=== PATIENT | male | born 1955 | race African-American/Black ===

== ENCOUNTER 2022-09-03 12:08 | Emergency (ER) | payer OTHER ==
[~2022-09-03] VITALS: Ht 175.3 cm; Wt 75.0 kg
[2022-09-03] MEDS ORDERED: KETOROLAC 60MG/2ML VIAL IM STA (15:38)
[2022-09-03 16:50] LABS: CLARITY URINE CLEAR (CLEAR); COLOR URINE YELLOW (YELLOW); KETONES URINE NEGATIVE (NEGATIVE); LEUKOCYTE ESTERASE URINE NEGATIVE (NEGATIVE); NITRITE URINE NEGATIVE (NEGATIVE); OCCULT BLOOD URINE NEGATIVE (NEGATIVE); PH URINE 5.5 (4.5-8.0); PROTEIN URINE NEGATIVE (NEGATIVE); SPECIFIC GRAVITY URINE 1.024 (1.005-1.030); UROBILINOGEN URINE 0.2 E.U./dL (0.2-1.0)
[2022-09-03 17:42] LABS: BASOPHILS % 0.8 % (0.0-2.0); EOSINOPHILS % 3.6 % (0.0-5.0); HEMATOCRIT. 45.9 % (42.0-52.0); HEMOGLOBIN. 15.4 g/dL (14.0-18.0); LYMPHOCYTES % 24.5 % (20.0-50.0); MEAN CORPUSCULAR HEMOGLOBIN 31.8 pg (28.0-32.0); MEAN PLATELET VOLUME 7.3 fl (7.4-10.4); MONOCYTES % 7.7 % (2.0-8.0); NEUTROPHILS % 63.4 % (40.0-76.0); PLATELET 230 x1000/uL (130-400); RED BLOOD CELL COUNT 4.83 mill/uL (4.7-6.1)
[2022-09-03 17:46] LABS: CHLORIDE 104 mEq/L (98-107)
[2022-09-03 17:49] LABS: PARTIAL THROMBOPLASTIN TIME 31.3 sec (23.4-31.0); PROTHROMBIN TIME 10.4 sec (9.6-11.0)
[2022-09-03] MEDS ORDERED: FAMO-135 PO (18:48)
[2022-09-03 19:05] VITALS: BP 117/75
== END 2022-09-03 19:06 | disposition home or self-care (01) ==
LOC: ER 12:08
DX: R10.10 Upper abdominal pain, unspecified (principal); M54.89 Other dorsalgia; M19.032 Primary osteoarthritis, left wrist; M71.332 Other bursal cyst, left wrist; M85.832 Other specified disorders of bone density and structure, left forearm; I10 Essential (primary) hypertension; E11.9 Type 2 diabetes mellitus without complications; E78.00 Pure hypercholesterolemia, unspecified; Z87.828 Personal history of other (healed) physical injury and trauma
CPT/HCPCS: 36415; 73110; 74176; 80053; 81003; 83690; 85025; 85610; 85730; 96372; 99285; J1885

== ENCOUNTER 2022-09-22 12:28 | Emergency (ER) | payer OTHER ==
[~2022-09-22] VITALS: Ht 175.3 cm; Wt 75.0 kg
[~2022-09-22 12:28] MED LIST: FAMO-135 PO
[2022-09-22 12:55] LABS: BASOPHILS % 0.8 % (0.0-2.0); EOSINOPHILS % 2.3 % (0.0-5.0); HEMATOCRIT. 46.1 % (42.0-52.0); HEMOGLOBIN. 15.4 g/dL (14.0-18.0); LYMPHOCYTES % 14.8 % (20.0-50.0); MEAN CORPUSCULAR VOLUME 95.6 fL (80.0-94.0); MEAN PLATELET VOLUME 7.3 fl (7.4-10.4); MONOCYTES % 6.4 % (2.0-8.0); NEUTROPHILS % 75.7 % (40.0-76.0); PLATELET 228 x1000/uL (130-400); RED BLOOD CELL COUNT 4.82 mill/uL (4.7-6.1); RED CELL DISTRIBUTION WIDTH 14.5 % (11.6-14.6)
[2022-09-22 13:08] LABS: CHLORIDE 112 mEq/L (98-107)
[2022-09-22 15:30] VITALS: BP 125/80
[2022-09-22 15:31] LABS: CLARITY URINE CLEAR (CLEAR); COLOR URINE YELLOW (YELLOW); KETONES URINE NEGATIVE (NEGATIVE); LEUKOCYTE ESTERASE URINE NEGATIVE (NEGATIVE); NITRITE URINE NEGATIVE (NEGATIVE); OCCULT BLOOD URINE TRACE (NEGATIVE); PROTEIN URINE NEGATIVE (NEGATIVE); SPECIFIC GRAVITY URINE 1.022 (1.005-1.030); UROBILINOGEN URINE 0.2 E.U./dL (0.2-1.0)
[2022-09-22] MEDS ORDERED: ONDA4TAB50 MT (15:58)
== END 2022-09-22 16:10 | disposition home or self-care (01) ==
LOC: ER 14:20
DX: R05.9 Cough, unspecified (principal); I10 Essential (primary) hypertension; E78.00 Pure hypercholesterolemia, unspecified; E11.9 Type 2 diabetes mellitus without complications
CPT/HCPCS: 36415; 71045; 80053; 81003; 84484; 85025; 93005; 99285

== ENCOUNTER 2025-03-09 09:47 | Emergency (ER) | payer BC, MEDICAID, MEDICARE ==
[~2025-03-09] VITALS: Ht 175.3 cm; Wt 75.0 kg
[~2025-03-09 09:47] MED LIST changes: +LOSA50TA41 PO; +METF-414 PO; +PRAV40TA58 PO; +TAMS-54 PO
[2025-03-09 09:56] VITALS: TEMP 36.7; O2SAT 99
[2025-03-09 11:41] VITALS: BP 132/78; PULSE 69; RESP 16; O2SAT 100
== END 2025-03-09 11:45 | disposition home or self-care (01) ==
LOC: ER 09:47
DX: S00.512A Abrasion of oral cavity, initial encounter (principal); I10 Essential (primary) hypertension; E11.9 Type 2 diabetes mellitus without complications; Z79.899 Other long term (current) drug therapy; X58.XXXA Exposure to other specified factors, initial encounter; Y93.89 Activity, other specified; Y92.89 Other specified places as the place of occurrence of the external cause; Y99.8 Other external cause status
CPT/HCPCS: 99282